=== PATIENT | female | born 1990 | race Caucasian/White ===

== ENCOUNTER 2016-10-15 20:27 | Emergency (ER) | payer OTHER ==
[2016-10-15 20:04] LABS: INFLUENZA A NEG (NEG); INFLUENZA B NEG (NEG)
[~2016-10-15 20:27] MED LIST: ACYCLOVIR400 MG PO; ALBUTEROL17 GM INH; AMOXICILLIN875 MG PO; BIRTH CONTROL; DEPO-PROVER150 MG/ML INJ; DICLOFENAC PO; DICYCLOMINE HCL20 MG PO; FIORICET W/CODE1 CAP PO; FLEXERIL10 M1 PO; FLEXERIL10 MG; LORTAB 7.5-5001 TAB PO; NAPROSYN500 MG PO; NO MEDICATIONS; PHENERGAN PO; PROMETHAZINE D118 ML PO; VOLTAREN75 MG PO
[2016-10-16] MEDS ORDERED: DEPO-PROVERA (23:56)
== END 2016-10-15 20:50 | disposition home or self-care (01) ==
LOC: SED 20:27
PROVIDERS: Emergency Medicine
DX: J02.0 Streptococcal pharyngitis (principal); Z90.49 Acquired absence of other specified parts of digestive tract
CPT/HCPCS: 87804; 87880; 96372; 99283; J0561; J1885

== ENCOUNTER 2016-12-25 12:27 | Emergency (ER) | payer OTHER ==
--- NOTE | ~2016-12-25 | CT2 ---
[facility] A Service of [facility] RADIOLOGY TEXT RESULTS PATIENT: AG JONAS LOCATION: SED : 86 UNIT #: [id number] AGE: [address]: José Hernandez MD SEX: F ORDER DR: [id number] [place] [id number] E MR#: [id number] Acc #: [id number] NAME: AG JONAS : 1990 SEX: F STUDY DATE/TIME: 12/25/2016 14:36 UNIT: SED ROOM: STUDY DESCRIPTION: CT Abd and Pelv W Cont Attending Physician: José Hernandez M.D. Ordering Physician: José Hernandez M.D. Primary Care Physician: Evgeny Guy M.D. MEDICAL IMAGING REPORT This report is preliminary unless electronic signature is present. EXAM CT of the abdomen and pelvis with IV contrast media HISTORY Abdominal pain beginning this morning. TECHNIQUE Axial imaging of the abdomen and pelvis was performed with IV contrast media. This CT exam was performed with one or more of the following radiation dose reduction techniques: automatic exposure control, adjustment of mA and/or kV according to patient size, and iterative reconstruction. FINDINGS Scans through the lung bases are normal. Liver and spleen are normal. The gallbladder is absent. Pancreas is normal. The adrenal glands are normal and both kidneys are normal. Appendix is normal. No dilated or thickened loops of bowel are identified. Uterus is retroverted. There are no adnexal masses or fluid collections. Bladder is normal. CONCLUSION 1. Status post cholecystectomy. 2. No acute findings in the abdomen. Dictated by... Norman Parra M.D. THIS IS AN ELECTRONICALLY VERIFIED REPORT Norman Parra M.D. at 12/28/2016 5:11 PM [facility] A Service of [facility] RADIOLOGY TEXT RESULTS PATIENT: AG JONAS LOCATION: SED : 86 UNIT #: [id number] AGE: [address]: José Hernandez MD SEX: F ORDER DR: ARTURO/daisy TD: 12/25/2016 17:52 JOB #: [id number] MEDICAL IMAGING REPORT Page 1 of 1
[~2016-12-25 12:27] MED LIST changes: +DEPO-PROVERA
[2016-12-25 13:17] LABS: BASOPHIL% 0.2 % (0-2.5); DIFF IND NO; EOSINOPHIL% 0.5 % (0.0-7.0); HEMOGLOBIN 12.9 gm/dL (12.0-16.0); LYMPHOCYTE# 1.7 X10e3 (1.0-3.5); MEAN CELL VOLUME 82.3 FL (83-96); MEAN CORPUSCULAR HEMOGLOBIN 27.2 PG (28-34); MONOCYTE# 0.4 X10e3 (0-1.0); MONOCYTE% 5.5 % (3.0-12.0); NEUTROPHIL# 5.4 X10e3 (1.5-7.1); NEUTROPHIL% 71.8 % (40-75); PLATELET COUNT 162 X10e3 (140-420); RED BLOOD COUNT 4.74 X10e (3.90-5.30); WHITE BLOOD COUNT 7.5 X10e3 (4.0-10.5)
[2016-12-25 13:18] LABS: MICRO INDICATED? NO; URINE APPEARANCE CLEAR; URINE BILIRUBIN NEG (NEG); URINE BLOOD NEG (NEG); URINE COLOR YELLOW; URINE GLUCOSE NEG (NORM); URINE KETONE NEG (NEG); URINE LEUKOCYTE ESTERASE NEG (NEG); URINE NITRATE NEG (NEG); URINE PH 6.5 (5-8); URINE PROTEIN NEG (NEG); URINE SOURCE CLEAN CATCH; URINE SPECIFIC GRAVITY <=1.005 (1.003-1.035); URINE UROBILINOGEN 0.2 MG/DL (NORM)
[2016-12-25 13:40] LABS: ALBUMIN SERUM 4.2 g/dL (3.5-5.0); BILIRUBIN, DIRECT 0.1 mg/dL (0.0-0.2); BILIRUBIN,INDIRECT 0.4 mg/dL (0.0-0.9); BILIRUBIN,TOTAL 0.5 mg/dL (0.2-2.0); CALCIUM SERUM 8.8 mg/dL (8.4-10.2); CREATININE SERUM 0.9 mg/dL (0.6-1.4); GLOM FILT RATE Estimated 87.1 mL/min (>60); POTASSIUM 4.1 mmol/L (3.5-5.1); PROTEIN TOTAL SERUM 6.8 g/dL (6.0-8.3)
== END 2016-12-25 15:09 | disposition home or self-care (01) ==
LOC: SED 12:27
PROVIDERS: Emergency Medicine
DX: R10.84 Generalized abdominal pain (principal); R11.0 Nausea; Z90.49 Acquired absence of other specified parts of digestive tract
CPT/HCPCS: 36415; 74177; 80048; 80076; 81003; 82150; 83690; 84703; 85025; 96361; 96374; 99284; Q9967